=== PATIENT | male | born 1975 | race Hispanic/Latino ===

== ENCOUNTER 2018-07-15 09:50 | Emergency (ER) | payer OTHER ==
--- OUTSIDE RECORDS SUMMARY | 2018-07-15 09:52 | XMS REPORT ---
:1975 [facility] Address [address] [place] [address] Dr. H[address] [place] [id number] Care Team Providers Name Role Phone Unavailable Unavailable Unavailable Problems This patient has no known problems. Allergies, Adverse Reactions, Alerts This patient has no known allergies or adverse reactions. Medications This patient has no known medications.
--- NOTE | 2018-07-15 11:14 | EDPHYS ---
Physician Documentation [facility] Name: Prudencio Catherine III Age: 43 yrs Sex: Male : 1975 Arrival Date: 07/15/2018 Time: 09:52 Bed 12 Private MD: Hernandez Stringer ED Physician Wendy Holly HPI: 07/15 10:53 This 43 yrs old Male presents to ER via Ambulatory with complaints of Flu ma2 Symptoms. 10:53 Onset: The symptoms/episode began/occurred gradually, 3 day(s) ago. Severity of ma2 symptoms: At their worst the symptoms were moderate, in the emergency department the symptoms are unchanged. Associated signs and symptoms: Pertinent negatives: diarrhea, fever, rhinorrhea, sore throat. The patient has not experienced similar symptoms in the past. Historical: - Allergies: 10:17 Advil; hb 10:17 Excedrin PM; hb - PSHx: 10:17 None; hb - Immunization history:: Adult Immunizations unknown. - Social history:: Smoking status: Patient/guardian denies using alcohol, street drugs, The patient lives with family. - Family history:: not pertinent. - Ebola Screening: : Patient negative for fever greater than or equal to 101.5 degrees Fahrenheit, and additional compatible Ebola Virus Disease symptoms Patient denies exposure to infectious person Patient denies travel to an Ebola-affected area in the 21 days before illness onset No symptoms or risks identified at this time. ROS: 10:53 Constitutional: Negative for fever, chills, and weight loss, Cardiovascular: Negative ma2 for chest pain, palpitations, and edema. 10:53 ENT: Positive for nasal discharge, sinus pain, Negative for injury or acute deformity. 10:53 All other systems are negative. Exam: 10:53 Constitutional: This is a well developed, well nourished patient who is awake, alert, ma2 and in no acute distress. Chest/axilla: Normal chest wall appearance and motion. Nontender with no deformity. No lesions are appreciated. Cardiovascular: Regular rate and rhythm with a normal S1 and S2. No gallops, murmurs, or rubs. Normal PMI, no JVD. No pulse deficits. Respiratory: Lungs have equal breath sounds bilaterally, clear to auscultation and percussion. No rales, rhonchi or wheezes noted. No increased work of breathing, no retractions or nasal flaring. Abdomen/GI: Soft, non-tender, with normal bowel sounds. No distension or tympany. No guarding or rebound. No evidence of tenderness throughout. MS/ Extremity: Pulses equal, no cyanosis. Neurovascular intact. Full, normal range of motion. Neuro: Awake and alert, GCS 15, oriented to person, place, time, and situation. Cranial nerves II-XII grossly intact. Motor strength 5/5 in all extremities. Sensory grossly intact. Cerebellar exam normal. Normal gait. 10:53 ENT: TM's: are normal, Nose: is normal, Posterior pharynx: Airway: normal, Tonsils: bilaterally enlarged, with erythema, no exudate, no ulcerations, swelling, is not appreciated, peritonsillar mass, is not appreciated, pooling of secretions, is not appreciated. Vital Signs: 10:17 BP 137 / 82; Pulse 84; Resp 18; Temp 98.4; Pulse Ox 100% on R/A; Pain 7/10; hb MDM: 10:19 Patient medically screened. ma2 10:53 Differential Diagnosis: Bronchitis Influenza Upper Respiratory Infection Sinusitis ma2 Pharyngitis. Data reviewed: vital signs, nurses notes. Counseling: I had a detailed discussion with the patient and/or guardian regarding: the historical points, exam findings, and any diagnostic results supporting the discharge/admit diagnosis, the presence of at least one elevated blood pressure reading (>120/80) during this emergency department visit, the need for outpatient follow up. 07/15 10:20 Order name: Influenza Screen (a \T\ B); Complete Time: 11:12 [facility] 07/15 10:20 Order name: Strep; Complete Time: 11:12 [facility] 07/15 11:13 Order name: Throat Culture EDMS Administered Medications: No medications were administered Disposition: 07/15/18 11:13 Discharged to Home. Impression: Acute bronchitis. - Condition is Stable. - Discharge Instructions: Acute Bronchitis, Adult. - Prescriptions for Prednisone 20 mg Oral Tablet - take 1 tablet by ORAL route once daily for 5 days; 5 tablet. Tessalon Perles 100 mg Oral Capsule - take 1 capsule by ORAL route every 8 hours As needed; 15 capsule. Zithromax Z- Irvin 250 mg Oral Tablet - take 1 tablet by ORAL route as directed for 5 days Day 1 - take two (2) tablets one time. Day 2, 3, 4 , 5 take one (1) tablet once daily.; 6 tablet. Albuterol Sulfate 90 mcg/actuation - inhale 1-2 puff by INHALATION route every 4-6 hours; 1 Inhaler. - Medication Reconciliation Form, Thank You Letter, Antibiotic Education, Prescription Opioid Use form. - Follow up: Private Physician; When: Tomorrow; Reason: Continuance of care. Signatures: Dispatcher [employer] Mary Lee RN RN Hansa Islas RN RN Wendy Araujo MD MD ma2 Corrections: (The following items were deleted from the chart) 11:31 11:13 07/15/2018 11:13 Discharged to Home. Impression: Acute bronchitis. Condition is iw Stable. Forms are Medication Reconciliation Form, Thank You Letter, Antibiotic Education, Prescription Opioid Use. Follow up: Private Physician; When: Tomorrow; Reason: Continuance of care. ma2
--- NOTE | 2018-07-15 11:14 | ER ---
Nurse's Notes [facility] Name: Prudencio Catherine III Age: 43 yrs Sex: Male : 1975 Arrival Date: 07/15/2018 Time: 09:52 Bed 12 Private MD: Hernandez Stringer Diagnosis: Acute bronchitis Presentation: 07/15 10:14 Presenting complaint: Productive cough, headache, sore throat, body aches, and night hb sweats x 4 days. Transition of care: patient was not received from another setting of care. Onset of symptoms was July 11, 2018. Risk Assessment: Do you want to hurt yourself or someone else? Patient reports no desire to harm self or others. Care prior to arrival: None. 10:14 Method Of Arrival: Ambulatory hb 10:14 Acuity: ANDRES 4 hb 10:46 Initial Sepsis Screen: Does the patient meet any 2 criteria? No. Patient's initial iw sepsis screen is negative. Does the patient have a suspected source of infection? No. Patient's initial sepsis screen is negative. Historical: - Allergies: 10:17 Advil; hb 10:17 Excedrin PM; hb - PSHx: 10:17 None; hb - Immunization history:: Adult Immunizations unknown. - Social history:: Smoking status: Patient/guardian denies using alcohol, street drugs, The patient lives with family. - Family history:: not pertinent. - Ebola Screening: : Patient negative for fever greater than or equal to 101.5 degrees Fahrenheit, and additional compatible Ebola Virus Disease symptoms Patient denies exposure to infectious person Patient denies travel to an Ebola-affected area in the 21 days before illness onset No symptoms or risks identified at this time. Screenin:47 Abuse screen: Denies threats or abuse. Denies injuries from another. Nutritional iw screening: No deficits noted. Tuberculosis screening: No symptoms or risk factors identified. Fall Risk None identified. Assessment: 10:46 General: Appears in no apparent distress. Behavior is calm, cooperative. Pain: iw Complains of pain in head, sore throat. Neuro: Level of Consciousness is awake, alert, obeys commands, Oriented to person, place, time, situation, Moves all extremities. Full function. Cardiovascular: Patient's skin is warm and dry. Respiratory: Respiratory effort is even, unlabored, Respiratory pattern is regular. Derm: Skin is intact, is healthy with good turgor. Musculoskeletal: Range of motion: intact in all extremities. Vital Signs: 10:17 BP 137 / 82; Pulse 84; Resp 18; Temp 98.4; Pulse Ox 100% on R/A; Pain 7/10; hb ED Course: 09:52 Patient arrived in ED. ag5 09:52 Hernandez Stringer MD is Private Physician. ag5 10:15 Triage completed. hb 10:15 Arm band placed on. hb 10:19 Wendy Holly MD is Attending Physician. ma2 10:45 Mary Pederson, RN is Primary Nurse. iw 10:46 Patient has correct armband on for positive identification. iw 10:47 No provider procedures requiring assistance completed. Flu and/or RSV swab sent to lab. iw Strep swab sent to lab. Patient did not have IV access during this emergency room visit. Administered Medications: No medications were administered Outcome: 11:13 Discharge ordered by . ma 11:30 Discharged to home ambulatory. iw 11:30 Condition: good 11:30 Discharge instructions given to patient, Instructed on discharge instructions, follow up and referral plans. medication usage, Demonstrated understanding of instructions, follow-up care, medications, Prescriptions given X 2. 11:31 Patient left the ED. iw Signatures: Mary Pederson, VICKY PERRY Hansa Islas RN RN Wendy Holly MD MD coAllison Beatty ag5
== END 2018-07-15 11:31 | disposition home or self-care (01) ==
LOC: ER 09:50
DX: J20.9 Acute bronchitis, unspecified (principal); Z88.6 Allergy status to analgesic agent
CPT/HCPCS: 87070; 87081; 87804; 99283

== ENCOUNTER 2019-09-07 08:01 | Emergency (ER) | payer OTHER ==
--- OUTSIDE RECORDS SUMMARY | 2019-09-07 08:03 | XMS REPORT ---
:1975 Author Organization [facility] t Address [address] [place] [address] Dr. Hyman [address] [place] [id number] Care Team Providers Name Role Phone Unavailable Unavailable Unavailable Problems This patient has no known problems. Allergies, Adverse Reactions, Alerts This patient has no known allergies or adverse reactions. Medications This patient has no known medications.
[2019-09-07] MEDS ORDERED: NA CHLORIDE 0.9% 1,000 ML ONE (08:24)
[2019-09-07] MEDS ORDERED: MORPHINE 4 MG/ML SYR ONE (08:24)
[2019-09-07] MEDS ORDERED: ONDANSETRON 4 MG/2 ML VIAL ONE (08:24)
[2019-09-07 08:31] LABS: Absolute Lymphocytes (CBC) 3.3 K/uL (0.7-4.9); Basophils % 0.9 % (0-1.3); Hematocrit 43.6 % (39.6-49.0); Lymphocytes % 40.5 % (15.3-44.8); MPV 9.2 fL (7.6-11.3); RBC Red Blood Cell Count 5.25 M/uL (4.33-5.43)
[2019-09-07 08:49] LABS: Albumin 3.8 g/dL (3.4-5.0); Bilirubin Direct 0.1 mg/dL (0-0.2); Bilirubin Total 0.3 mg/dL (0.2-1.0); Potassium 3.7 mmol/L (3.5-5.1)
[2019-09-07] MEDS ORDERED: KETOROLAC 30 MG/ML INJ ONE (09:22)
--- NOTE | 2019-09-07 09:39 | RAD REPORT ---
EXAM DESCRIPTION: CT - Stone Protocol - 09/07/2019 8:58 am CLINICAL HISTORY: Flank pain. FLANK PAIN COMPARISON: CTSTONE PROTOCOL dated 09/15/2014 TECHNIQUE: Axial images were obtained without oral or IV contrast. Lack of contrast limits solid org an and vascular assessment. The [id number] spans the entirety of the system partially obscuring uppermost abdomen and lung bases. Coronal reformatted images were obtained and reviewed. All CT scans are performed using dose optimization technique as appropriate and may include automated exposure control or mA/KV adjustment according to patient size. FINDINGS: The lower lung walter are clear. Imaged portions of the liver and spleen show no suspicious findings on non-contrast imaging. The panc reas and adrenal glands are normal. No pathologic lymphadenopathy in the abdomen or pelvis. 2 mm calculus is seen at the right UVJ resulting in mild right hydronephrosis and hydroureter. Additi onal punctate caliceal stones are present bilaterally. No bowel obstruction, free air, free fluid or abscess. Normal appendix noted. No significant bony abnormality. IMPRESSION: 2 mm calculus right UVJ resulting in mild right hydronephrosis and hydroureter. Additional punctate bilateral caliceal nephrolithiasis.
[2019-09-07] MEDS ORDERED: TAMSULOSIN 0.4 MG SR CAP ONE (10:17)
[2019-09-07 10:18] LABS: Urine Bacteria <20 /HPF (NONE SEEN); Urine Culture Reflex Order NOT NEEDED; Urine Mucus LIGHT /HPF (NONE SEEN); Urine RBC NONE SEEN /HPF (NONE SEEN)
[2019-09-07 10:22] LABS: Urine Blood NEGATIVE (NEG); Urine Glucose 1+ (NEG); Urine Protein TRACE (NEG); Urine Specific Gravity >1.030 (1.005-1.030); Urine pH 5.5 (5.0-7.0)
--- NOTE | 2019-09-07 10:35 | ER ---
Nurse's Notes [facility] Name: Prudencio Catherine III Age: 44 yrs Sex: Male : 1975 Arrival Date: 09/07/2019 Time: 08:03 Bed 7 Private MD: Hernandez Stringer Diagnosis: Ureterolithiasis Presentation: 09/06 08:12 Chief complaint: Sudden severe right flank pain and nausea x 1 hr. Hx of kidney stones. hb Coronavirus screen: Proceed with normal triage. Ebola Screen: No symptoms or risks identified at this time. Initial Sepsis Screen: Does the patient meet any 2 criteria? No. Patient's initial sepsis screen is negative. Does the patient have a suspected source of infection? No. Patient's initial sepsis screen is negative. Risk Assessment: Do you want to hurt yourself or someone else? Patient reports no desire to harm self or others. Onset of symptoms was September 07, 2019. 08:12 Method Of Arrival: Ambulatory hb 08:12 Acuity: ANDRES 3 hb Historical: - Allergies: 08:14 Advil; hb 08:14 Excedrin PM; hb - Home Meds: 08:14 None [Active]; hb - PMHx: 08:14 Kidney stones; hb - PSHx: 08:14 None; hb - Immunization history:: Adult Immunizations up to date. - Social history:: Smoking status: Patient denies any tobacco usage or history of. Screenin:20 Abuse screen: Denies threats or abuse. Nutritional screening: No deficits noted. em Tuberculosis screening: No symptoms or risk factors identified. Fall Risk None identified. Assessment: 08:20 General: Appears uncomfortable, Behavior is calm, cooperative, appropriate for age, em Reports cold sweats Denies fever. Pain: Complains of pain in anterior aspect of right lateral abdomen Pain currently is 10 out of 10 on a pain scale. Quality of pain is described as sharp, shooting, Pain began 1 hour ago. Neuro: Level of Consciousness is awake, alert, obeys commands, Oriented to person, place, time, situation, Appropriate for age. Cardiovascular: Capillary refill < 3 seconds Patient's skin is warm and dry. Respiratory: Airway is patent Respiratory effort is even, unlabored, Respiratory pattern is regular, symmetrical. GI: Abdomen is round non-distended, Patient currently denies nausea, vomiting. Derm: Skin is intact, is healthy with good turgor, Skin is pink, warm \T\ dry. Musculoskeletal: Capillary refill < 3 seconds, Range of motion: intact in all extremities. Vital Signs: 08:12 BP 139 / 90; Pulse 63; Resp 16; Temp 97.8; Pulse Ox 99% on R/A; Weight 124.74 kg; hb Height 5 ft. 5 in. (165.10 cm); Pain 10/10; 09:22 BP 127 / 66; Pulse 61; Resp 18; Pulse Ox 99% on R/A; Pain 7/10; em 10:12 BP 122 / 64; Pulse 72; Resp 16; Pulse Ox 100% ; jl7 08:12 Body Mass Index 45.76 (124.74 kg, 165.10 cm) hb ED Course: 08:03 Patient arrived in ED. am2 08:03 Hernandez Stringer MD is Private Physician. am2 08:03 Julius Graham [facility]. pm1 08:03 Jesse Johnson MD is Attending Physician. pm1 08:14 Triage completed. hb 08:14 Arm band placed on. hb 08:15 Alfonso Barnett, RN is Primary Nurse. em 08:20 Patient has correct armband on for positive identification. Bed in low position. Call em light in reach. Pulse ox on. NIBP on. 08:56 Initial lab(s) drawn, by me, sent to lab. Inserted saline lock: 20 gauge in right mh5 antecubital area, using aseptic technique. Blood collected. 08:58 CT Stone Protocol In Process Unspecified. EDMS 08:59 CT completed. Patient tolerated procedure well. Patient moved back from CT. bq 10:35 Ann-Marie Hoover MD is Referral Physician. pm1 10:54 No provider procedures requiring assistance completed. IV discontinued, intact, jl7 bleeding controlled, No redness/swelling at site. Pressure dressing applied. Administered Medications: 08:22 Drug: NS 0.9% 1000 ml Route: IV; Rate: 1000 ml; Site: right antecubital; em 09:21 Follow up: IV Status: Completed infusion; IV Intake: 1000ml em 08:22 Drug: Zofran (Ondansetron) 4 mg Route: IVP; Site: right antecubital; em 08:40 Follow up: Response: No adverse reaction em 08:40 Follow up: Response: No adverse reaction; Marked relief of symptoms; Pain is decreased; em RASS: Alert and Calm (0) 08:24 Drug: morphine 4 mg Route: IVP; Site: right antecubital; em 10:55 Follow up: Response: No adverse reaction jl7 09:20 Drug: TORadol - Ketorolac 15 mg Route: IVP; Site: right antecubital; em 09:50 Follow up: Response: No adverse reaction; Pain is decreased jl7 10:12 Drug: Flomax 0.4 mg Route: PO; jl7 10:55 Follow up: Response: No adverse reaction jl7 Intake: 09:21 IV: 1000ml; Total: 1000ml. em Outcome: 10:35 Discharge ordered by . pm1 10:54 Discharged to home ambulatory. jl7 10:54 Condition: stable 10:54 Discharge instructions given to patient, Instructed on discharge instructions, follow up and referral plans. medication usage, Demonstrated understanding of instructions, follow-up care, medications, Prescriptions given X 3. 10:56 Patient left the ED. jl7 Signatures: Dispatcher [employer] Waleska Huffman Edgar RN Julius Denton, ANTHONY [employer]OUNDER pm1 Hansa Islas RN RN hb Martinez, Maria [facility] Neil Ro RN RN jl7 Trini North 2
--- NOTE | 2019-09-07 10:35 | EDPHYS ---
Physician Documentation [facility] Name: Prudencio Catherine III Age: 44 yrs Sex: Male : 1975 Arrival Date: 09/07/2019 Time: 08:03 Bed 7 Private MD: Hernandez Stringer ED Physician Jesse Johnson HPI: 09/06 08:25 This 44 yrs old Male presents to ER via Ambulatory with complaints of Flank pm1 Pain. 08:25 The patient complains of pain in the right low back. Onset: The symptoms/episode pm1 began/occurred this morning. Modifying factors: The symptoms are alleviated by nothing. the symptoms are aggravated by nothing. Associated signs and symptoms: Pertinent positives: nausea, vomiting, Pertinent negatives: diarrhea, dysuria, fever. Severity of pain: in the emergency department the pain is actually worse. The patient has experienced similar episodes in the past, a few times, and the symptoms today are exactly the same, to previous kidney stones. The patient has not recently seen a physician. Historical: - Allergies: 08:14 Advil; hb 08:14 Excedrin PM; hb - Home Meds: 08:14 None [Active]; hb - PMHx: 08:14 Kidney stones; hb - PSHx: 08:14 None; hb - Immunization history:: Adult Immunizations up to date. - Social history:: Smoking status: Patient denies any tobacco usage or history of. ROS: 08:25 Constitutional: Negative for fever, chills, and weight loss, Cardiovascular: Negative pm1 for chest pain, palpitations, and edema, Respiratory: Negative for shortness of breath, cough, wheezing, and pleuritic chest pain. 08:25 : Negative for injury, bleeding, discharge, and swelling, MS/Extremity: Negative for injury and deformity, Skin: Negative for injury, rash, and discoloration, Neuro: Negative for headache, weakness, numbness, tingling, and seizure. 08:25 Abdomen/GI: Positive for nausea and vomiting, Negative for abdominal pain, diarrhea, constipation. 08:25 Back: Positive for flank pain, on the right, Negative for pain with movement. Exam: 08:25 Constitutional: This is a well developed, well nourished patient who is awake, alert, pm1 and in no acute distress. Head/Face: Normocephalic, atraumatic. Chest/axilla: Normal chest wall appearance and motion. Nontender with no deformity. No lesions are appreciated. 08:25 Back: No spinal tenderness. No costovertebral tenderness. Full range of motion. 08:25 Skin: Warm, dry with normal turgor. Normal color with no rashes, no lesions, and no evidence of cellulitis. MS/ Extremity: Pulses equal, no cyanosis. Neurovascular intact. Full, normal range of motion. 08:25 Cardiovascular: Exam negative for acute changes, Rate: normal, Rhythm: regular, Pulses: no pulse deficits are appreciated, Edema: is not appreciated. 08:25 Respiratory: Exam negative for acute changes, respiratory distress, shortness of breath. 08:25 Abdomen/GI: Inspection: obese Palpation: abdomen is soft and non-tender, in all quadrants, mass, is not appreciated, rebound tenderness, is not appreciated. 08:25 Neuro: Exam negative for acute changes, Orientation: is normal, Motor: is normal, moves all fours. Vital Signs: 08:12 BP 139 / 90; Pulse 63; Resp 16; Temp 97.8; Pulse Ox 99% on R/A; Weight 124.74 kg; hb Height 5 ft. 5 in. (165.10 cm); Pain 10/10; 09:22 BP 127 / 66; Pulse 61; Resp 18; Pulse Ox 99% on R/A; Pain 7/10; em 10:12 BP 122 / 64; Pulse 72; Resp 16; Pulse Ox 100% ; jl7 08:12 Body Mass Index 45.76 (124.74 kg, 165.10 cm) hb MDM: 08:06 Patient medically screened. pm1 08:46 Data reviewed: vital signs. Data interpreted: Pulse oximetry: on room air is 99 %. pm1 Interpretation: normal. 10:34 Counseling: I had a detailed discussion with the patient and/or guardian regarding: the pm1 historical points, exam findings, and any diagnostic results supporting the discharge/admit diagnosis, lab results, radiology results, the need for outpatient follow up, a urologist, to return to the emergency department if symptoms worsen or persist or if there are any questions or concerns that arise at home. 09/06 08:10 Order name: Basic Metabolic Panel; Complete Time: 08:51 pm1 09/06 08:10 Order name: CBC with Diff; Complete Time: 08:46 pm1 09/06 08:10 Order name: Creatinine for Radiology; Complete Time: 08:51 pm1 09/06 08:10 Order name: Hepatic Function; Complete Time: 08:51 pm1 09/06 08:10 Order name: Lipase; Complete Time: 08:51 pm1 09/06 08:10 Order name: Urine Microscopic Only; Complete Time: 10:34 pm1 09/06 08:10 Order name: IV Saline Lock; Complete Time: 08:32 pm1 09/06 08:10 Order name: CT Stone Protocol; Complete Time: 09:42 pm1 09/06 09:58 Order name: Urine Dipstick--Ancillary (enter results); Complete Time: 10:34 tt3 09/06 08:10 Order name: Labs collected and sent; Complete Time: 08:32 pm1 09/06 08:10 Order name: Urine Dipstick-Ancillary (obtain specimen); Complete Time: 10:48 pm1 Administered Medications: 08:22 Drug: NS 0.9% 1000 ml Route: IV; Rate: 1000 ml; Site: right antecubital; em 09:21 Follow up: IV Status: Completed infusion; IV Intake: 1000ml em 08:22 Drug: Zofran (Ondansetron) 4 mg Route: IVP; Site: right antecubital; em 08:40 Follow up: Response: No adverse reaction em 08:40 Follow up: Response: No adverse reaction; Marked relief of symptoms; Pain is decreased; em RASS: Alert and Calm (0) 08:24 Drug: morphine 4 mg Route: IVP; Site: right antecubital; em 10:55 Follow up: Response: No adverse reaction jl7 09:20 Drug: TORadol - Ketorolac 15 mg Route: IVP; Site: right antecubital; em 09:50 Follow up: Response: No adverse reaction; Pain is decreased jl7 10:12 Drug: Flomax 0.4 mg Route: PO; jl7 10:55 Follow up: Response: No adverse reaction jl7 Disposition: 09/07/19 10:35 Discharged to Home. Impression: Ureterolithiasis. - Condition is Stable. - Discharge Instructions: Kidney Stones. - Prescriptions for Flomax 0.4 mg Oral Capsule, Sust. Release 24 hr - take 1 capsule by ORAL route once daily 1/2 hour following the same meal each day; 10 capsule. Tylenol- Codeine #3 300-30 mg Oral Tablet - take 2 tablets by ORAL route every 6 hours As needed; 20 tablet. Zofran ODT 4 mg Oral tablet,disintegrating - place 1 tablet by TRANSLINGUAL route every 8 hours As needed; 12 tablet. - Medication Reconciliation Form, Thank You Letter, Antibiotic Education, Prescription Opioid Use form. - Follow up: Emergency Department; When: As needed; Reason: Worsening of condition. Follow up: Ann-Marie Hoover; When: 2 - 3 days; Reason: Recheck today's complaints, Continuance of care, Re-evaluation by your physician. - Problem is new. - Symptoms have improved. Addendum: 09/08/2019 20:19 Co-signature as Attending Physician, Jesse Johnson MD I agree with the assessment and c pathak plan of care. Signatures: Dispatcher [employer] Jesse Valderrama MD MD cha Munoz, Edgar, RN RN Julius Beckford, ANTHONY BRAZER FURNACE pm1 Hansa Islas, RN RN Neil Ro RN RN jl7 Corrections: (The following items were deleted from the chart) 09/06 10:56 10:35 09/07/2019 10:35 Discharged to Home. Impression: Ureterolithiasis. Condition is jl7 Stable. Discharge Instructions: Kidney Stones. Prescriptions for Flomax 0.4 mg Oral Capsule, Sust. Release 24 hr - take 1 capsule by ORAL route once daily 1/2 hour following the same meal each day; 10 capsule. and Forms are Medication Reconciliation Form, Thank You Letter, Antibiotic Education, Prescription Opioid Use. Follow up: Emergency Department; When: As needed; Reason: Worsening of condition. Follow up: Ann-Marie Hoover; When: 2 - 3 days; Reason: Recheck today's complaints, Continuance of care, Re-evaluation by your physician. Problem is new. Symptoms have improved. pm1
[2019-09-07 11:06] VITALS: TEMP 97.8
[2019-09-07 11:07] VITALS: BP 122/64; O2SAT 100
== END 2019-09-07 10:56 | disposition home or self-care (01) ==
LOC: ER 08:01
DX: N20.1 Calculus of ureter (principal)
CPT/HCPCS: 96361; 85025; 80048; 36415; 80076; 83690; 76377; 74176; 96375; 96374; 99284; J7030; J2405; 81003; 81015

== ENCOUNTER 2020-02-24 22:58 | Emergency (ER) | payer OTHER ==
--- OUTSIDE RECORDS SUMMARY | 2020-02-24 23:00 | XMS REPORT | Continuity of Care Document ---
:1975 Author Organization [facility] t Address [address] [place] [address] Dr. Hyman [address] [place] [id number] Care Team Providers Name Role Phone Unavailable Unavailable Unavailable Problems This patient has no known problems. Allergies, Adverse Reactions, Alerts This patient has no known allergies or adverse reactions. Medications This patient has no known medications. Procedures This patient has no known procedures. Results This patient has no known results.
[2020-02-24] MEDS ORDERED: NA CHLORIDE 0.9% 1,000 ML ONE (23:27)
[2020-02-24] MEDS ORDERED: MORPHINE 4 MG/ML SYR ONE (23:27)
[2020-02-24] MEDS ORDERED: ONDANSETRON 4 MG/2 ML VIAL ONE (23:27)
[2020-02-24 23:58] LABS: Absolute Lymphocytes (CBC) 4.5 K/uL (0.7-4.9); Basophils % 0.9 % (0-1.3); Hematocrit 42.2 % (39.6-49.0); Lymphocytes % 47.1 % (15.3-44.8); MPV 9.7 fL (7.6-11.3); RBC Red Blood Cell Count 5.06 M/uL (4.33-5.43)
[2020-02-25 00:10] LABS: ALT/SGPT 57 U/L (12-78); AST/SGOT 39 U/L (15-37); Albumin 3.6 g/dL (3.4-5.0); Alkaline Phosphatase 70 U/L (45-117); BUN Blood Urea Nitrogen 15 mg/dL (7-18); Bicarbonate 27 mmol/L (21-32); Bilirubin Direct < 0.1 mg/dL (0-0.2); Bilirubin Total 0.2 mg/dL (0.2-1.0); Glucose Level 305 mg/dL (74-106); Lipase 327 U/L (73-393); Potassium 3.6 mmol/L (3.5-5.1); Protein, Total 7.8 g/dL (6.4-8.2); Sodium Level 136 mmol/L (136-145)
[2020-02-25] MEDS ORDERED: MORPHINE 4 MG/ML SYR ONE (00:30)
[2020-02-25] MEDS ORDERED: ONDANSETRON 4 MG/2 ML VIAL ONE (00:30)
[2020-02-25 00:35] LABS: Urine Bacteria <20 /HPF (NONE SEEN); Urine Culture Reflex Order NOT NEEDED; Urine RBC <5 /HPF (NONE SEEN)
--- NOTE | 2020-02-25 00:35 | ER ---
Nurse's Notes [facility] Name: Prudencio Catherine III Age: 44 yrs Sex: Male : 1975 Arrival Date: 02/24/2020 Time: 23:01 Bed 20 Private MD: Diagnosis: Calculus of kidney with calculus of ureter-Left Presentation: 02/23 23:12 Chief complaint: Patient states: i have left flank pain that started 15 min ago. mg2 Coronavirus screen: Client denies travel out of the [place] in the last 14 days. At this time, the client does not indicate any symptoms associated with coronavirus-19. Ebola Screen: No symptoms or risks identified at this time. Initial Sepsis Screen: Does the patient meet any 2 criteria? No. Patient's initial sepsis screen is negative. Does the patient have a suspected source of infection? No. Patient's initial sepsis screen is negative. Risk Assessment: Do you want to hurt yourself or someone else? Patient reports no desire to harm self or others. Onset of symptoms was February 24, 2020. 23:12 Method Of Arrival: Ambulatory mg2 23:12 Acuity: ANDRES 2 mg2 Triage Assessment: 02/24 00:25 General: Behavior is calm, cooperative. mg2 Historical: - Allergies: 02/23 23:51 Advil; mg2 23:51 Excedrin PM; mg2 - Home Meds: 23:51 metformin [Active]; mg2 - PMHx: 23:51 Kidney stones; Diabetes - NIDDM; mg2 - PSHx: 23:51 None; mg2 - Immunization history:: Flu vaccine status is unknown. - Social history:: Smoking status: Patient denies any tobacco usage or history of. Patient/guardian denies using alcohol, street drugs, IV drugs. Screenin/28 00:20 Abuse screen: Denies threats or abuse. Denies injuries from another. Nutritional mg2 screening: No deficits noted. Tuberculosis screening: No symptoms or risk factors identified. Fall Risk IV access (20 points). Assessment: 02/23 23:15 General: Appears in no apparent distress. uncomfortable. Pain: Complains of pain in mg2 left flank Pain currently is 10 out of 10 on a pain scale. Neuro: Level of Consciousness is awake, alert, obeys commands, Oriented to person, place, time, situation. Cardiovascular: Capillary refill < 3 seconds Patient's skin is warm and dry. Respiratory: Airway is patent Respiratory effort is even, unlabored, Respiratory pattern is regular, symmetrical. GI: Reports nausea. : Reports pain in left flank(s). EENT: No signs and/or symptoms were reported regarding the EENT system. Derm: Skin is intact, is healthy with good turgor, Skin is pink, warm \T\ dry. normal. Musculoskeletal: Circulation, motion, and sensation intact. Capillary refill < 3 seconds. 02/24 00:35 Reassessment: Patient appears in no apparent distress at this time. Patient and/or mg2 family updated on plan of care and expected duration. Pain level reassessed. Patient is alert, oriented x 3, equal unlabored respirations, skin warm/dry/pink. 00:49 Reassessment: Patient appears in no apparent distress at this time. patient will be dc mg2 after completing the iv fluid. Patient states feeling better. Vital Signs: 02/23 23:12 Weight 99.79 kg; Height 5 ft. 5 in. (165.10 cm); Pain 10/10; mg2 23:12 BP 144 / 90; Pulse 63; Resp 18; Temp 98.6(O); Pulse Ox 100% on R/A; Pain 10/10; mg2 02/24 00:49 BP 142 / 85; Pulse 65; Resp 18; Temp 98; Pulse Ox 100% on R/A; Pain 2/10; mg2 02/23 23:12 Body Mass Index 36.61 (99.79 kg, 165.10 cm) mg2 ED Course: 02/23 23:01 Patient arrived in ED. ag3 23:10 Julius Graham NP is PHCP. pm1 23:10 Rene Vargas MD is Attending Physician. pm1 23:13 Inserted saline lock: 20 gauge in right antecubital area, using aseptic technique. mg2 Blood collected. 23:42 David Abdi, VICKY is Primary Nurse. mg2 23:50 Triage completed. mg2 23:51 No provider procedures requiring assistance completed. mg2 02/24 00:00 CT Stone Protocol In Process Unspecified. EDMS 00:19 Patient has correct armband on for positive identification. Pulse ox on. NIBP on. mg2 00:21 Arm band placed on. mg2 01:07 IV discontinued, intact, bleeding controlled, No redness/swelling at site. Pressure mg2 dressing applied. Administered Medications: 02/23 23:14 Drug: NS 0.9% 1000 ml Route: IV; Rate: 1000 ml; Site: right antecubital; mg2 02/24 01:08 Follow up: Response: No adverse reaction; IV Status: Completed infusion; IV Intake: mg2 1000ml 02/23 23:14 Drug: morphine 4 mg Route: IVP; Site: right antecubital; mg2 02/24 00:30 Follow up: Response: No adverse reaction mg2 02/23 23:48 Drug: Zofran (Ondansetron) 4 mg Route: IVP; Site: right antecubital; mg2 02/24 00:29 Follow up: Response: No adverse reaction mg2 00:29 Drug: morphine 4 mg Route: IVP; Site: right antecubital; mg2 01:08 Follow up: Response: No adverse reaction; Marked relief of symptoms; RASS: Alert and mg2 Calm (0) 00:29 Drug: Zofran (Ondansetron) 4 mg Route: IVP; Site: right antecubital; mg2 01:07 Follow up: Response: No adverse reaction; Marked relief of symptoms; Nausea is decreasedmg2 00:40 Drug: Flomax 0.4 mg Route: PO; mg2 01:07 Follow up: Response: No adverse reaction mg2 00:40 Drug: TORadol - Ketorolac 15 mg Route: IVP; Site: right antecubital; mg2 01:07 Follow up: Response: No adverse reaction; Marked relief of symptoms mg2 Intake: 01:08 IV: 1000ml; Total: 1000ml. mg2 Outcome: 00:34 Discharge ordered by . pm1 01:08 Discharged to home ambulatory. mg2 01:08 Condition: stable 01:08 Discharge instructions given to patient, Instructed on discharge instructions, follow up and referral plans. medication usage, Demonstrated understanding of instructions, follow-up care, medications, Prescriptions given X 3. 01:08 Patient left the ED. mg2 Signatures: Dispatcher [employer] EDMS Julius Graham NP ASSOCIATE PROFESSOR OF CHEMISTRY pm1 David Abdi, VICKY RN mg2 Dafne Chen ag3
--- NOTE | 2020-02-25 00:35 | EDPHYS ---
Physician Documentation [facility] Name: Prudencio Catherine III Age: 44 yrs Sex: Male : 1975 Arrival Date: 02/24/2020 Time: 23:01 Bed 20 Private MD: ED Physician Rene Vargas HPI: 02/23 23:19 This 44 yrs old Male presents to ER via Ambulatory with complaints of Flank pm1 Pain. 23:19 The patient complains of pain in the left low back. The pain does not radiate. Onset: pm1 The symptoms/episode began/occurred just prior to arrival. Modifying factors: The symptoms are alleviated by nothing. the symptoms are aggravated by nothing. Associated signs and symptoms: Pertinent positives: nausea, Pertinent negatives: dysuria, fever, vomiting. Severity of pain: in the emergency department the pain is actually worse. The patient has experienced similar episodes in the past, several times, and the symptoms today are exactly the same, to previous kidney stones. The patient has not recently seen a physician. Historical: - Allergies: 23:51 Advil; mg2 23:51 Excedrin PM; mg2 - Home Meds: 23:51 metformin [Active]; mg2 - PMHx: 23:51 Kidney stones; Diabetes - NIDDM; mg2 - PSHx: 23:51 None; mg2 - Immunization history:: Flu vaccine status is unknown. - Social history:: Smoking status: Patient denies any tobacco usage or history of. Patient/guardian denies using alcohol, street drugs, IV drugs. ROS: 23:19 Constitutional: Negative for fever, chills, and weight loss. pm1 23:19 Cardiovascular: Negative for chest pain, palpitations, and edema, Respiratory: Negative for shortness of breath, cough, wheezing, and pleuritic chest pain. 23:19 : Negative for injury, bleeding, discharge, and swelling, MS/Extremity: Negative for injury and deformity, Skin: Negative for injury, rash, and discoloration, Neuro: Negative for headache, weakness, numbness, tingling, and seizure. 23:19 Abdomen/GI: Positive for nausea, Negative for abdominal pain, vomiting, diarrhea. 23:19 Back: Positive for flank pain, on the left. Exam: 23:19 Constitutional: This is a well developed, well nourished patient who is awake, alert, pm1 and in no acute distress. Head/Face: Normocephalic, atraumatic. 23:19 Skin: Warm, dry with normal turgor. Normal color with no rashes, no lesions, and no evidence of cellulitis. MS/ Extremity: Pulses equal, no cyanosis. Neurovascular intact. Full, normal range of motion. 23:19 Cardiovascular: Exam negative for acute changes, Rate: normal, Rhythm: regular, Pulses: no pulse deficits are appreciated. 23:19 Respiratory: Exam negative for acute changes, respiratory distress, shortness of breath. 23:19 Abdomen/GI: Exam negative for acute changes, Inspection: abdomen appears normal, Palpation: abdomen is soft and non-tender, in all quadrants. 23:19 Back: CVA tenderness, that is mild, is noted on the left. 23:19 Neuro: Exam negative for acute changes, Orientation: is normal, Mentation: is normal, Motor: is normal, moves all fours. Vital Signs: 23:12 Weight 99.79 kg; Height 5 ft. 5 in. (165.10 cm); Pain 10/10; mg2 23:12 BP 144 / 90; Pulse 63; Resp 18; Temp 98.6(O); Pulse Ox 100% on R/A; Pain 10/10; mg2 02/24 00:49 BP 142 / 85; Pulse 65; Resp 18; Temp 98; Pulse Ox 100% on R/A; Pain 2/10; mg2 02/23 23:12 Body Mass Index 36.61 (99.79 kg, 165.10 cm) mg2 MDM: 02/23 23:11 Patient medically screened. pm1 02/24 00:29 Data reviewed: vital signs. Data interpreted: Pulse oximetry: on room air is 100 %. pm1 Interpretation: normal. Counseling: I had a detailed discussion with the patient and/or guardian regarding: the historical points, exam findings, and any diagnostic results supporting the discharge/admit diagnosis, lab results, radiology results, the need for outpatient follow up, a urologist, to return to the emergency department if symptoms worsen or persist or if there are any questions or concerns that arise at home. 02/23 23:13 Order name: Basic Metabolic Panel pm1 02/23 23:13 Order name: CBC with Diff; Complete Time: 00:20 pm1 02/23 23:13 Order name: Hepatic Function pm1 02/23 23:13 Order name: Lipase pm1 02/23 23:13 Order name: Urine Microscopic Only; Complete Time: 00:37 pm1 02/23 23:14 Order name: Basic Metabolic Panel; Complete Time: 00:20 EDMS 02/23 23:13 Order name: CT Stone Protocol pm1 02/23 23:14 Order name: Liver (Hepatic) Function; Complete Time: 00:20 EDMS 02/23 23:14 Order name: Lipase; Complete Time: 00:20 EDMS 02/24 00:31 Order name: Urine Dipstick--Ancillary (enter results); Complete Time: 00:37 ar5 02/23 23:13 Order name: IV Saline Lock; Complete Time: 23:49 pm1 02/23 23:13 Order name: Labs collected and sent; Complete Time: 23:49 pm1 02/23 23:13 Order name: Urine Dipstick-Ancillary (obtain specimen); Complete Time: 00:10 pm1 Administered Medications: 02/23 23:14 Drug: NS 0.9% 1000 ml Route: IV; Rate: 1000 ml; Site: right antecubital; mg2 02/24 01:08 Follow up: Response: No adverse reaction; IV Status: Completed infusion; IV Intake: mg2 1000ml 02/23 23:14 Drug: morphine 4 mg Route: IVP; Site: right antecubital; mg2 02/24 00:30 Follow up: Response: No adverse reaction mg2 02/23 23:48 Drug: Zofran (Ondansetron) 4 mg Route: IVP; Site: right antecubital; mg2 02/24 00:29 Follow up: Response: No adverse reaction mg2 00:29 Drug: morphine 4 mg Route: IVP; Site: right antecubital; mg2 01:08 Follow up: Response: No adverse reaction; Marked relief of symptoms; RASS: Alert and mg2 Calm (0) 00:29 Drug: Zofran (Ondansetron) 4 mg Route: IVP; Site: right antecubital; mg2 01:07 Follow up: Response: No adverse reaction; Marked relief of symptoms; Nausea is decreasedmg2 00:40 Drug: Flomax 0.4 mg Route: PO; mg2 01:07 Follow up: Response: No adverse reaction mg2 00:40 Drug: TORadol - Ketorolac 15 mg Route: IVP; Site: right antecubital; mg2 01:07 Follow up: Response: No adverse reaction; Marked relief of symptoms mg2 Disposition: 01:20 Co-signature as Attending Physician, Rene Vargas MD. shawn Disposition: 02/25/20 00:34 Discharged to Home. Impression: Calculus of kidney with calculus of ureter - Left. - Condition is Stable. - Discharge Instructions: Kidney Stones, Dietary Guidelines to Help Prevent Kidney Stones. - Prescriptions for Flomax 0.4 mg Oral Capsule, Sust. Release 24 hr - take 1 capsule by ORAL route once daily 1/2 hour following the same meal each day; 10 capsule. Zofran ODT 4 mg Oral tablet,disintegrating - place 1 tablet by TRANSLINGUAL route every 8 hours As needed; 20 tablet. Tylenol- Codeine #3 300-30 mg Oral Tablet - take 2 tablets by ORAL route every 6 hours As needed; 20 tablet. - Medication Reconciliation Form, Thank You Letter, Antibiotic Education, Prescription Opioid Use form. - Follow up: Emergency Department; When: As needed; Reason: Worsening of condition. Follow up: Private Physician; When: 2 - 3 days; Reason: Recheck today's complaints, Continuance of care, Re-evaluation by your physician. - Problem is new. - Symptoms have improved. Signatures: Dispatcher [employer] EDRene Morrell MD MD pkl Julius Graham NP GLUE SPREADING MACHINE OPERATOR pm1 David Abdi RN RN mg2 Corrections: (The following items were deleted from the chart) 01:08 00:34 02/25/2020 00:34 Discharged to Home. Impression: Calculus of kidney with calculus mg2 of ureter - Left. Condition is Stable. Forms are Medication Reconciliation Form, Thank You Letter, Antibiotic Education, Prescription Opioid Use. Follow up: Emergency Department; When: As needed; Reason: Worsening of condition. Follow up: Private Physician; When: 2 - 3 days; Reason: Recheck today's complaints, Continuance of care, Re-evaluation by your physician. Problem is new. Symptoms have improved. pm1
[2020-02-25 00:36] LABS: Urine Blood NEGATIVE (NEG); Urine Glucose 2+ (NEG); Urine Protein NEGATIVE (NEG); Urine Specific Gravity 1.025 (1.005-1.030); Urine pH 5.5 (5.0-7.0)
[2020-02-25] MEDS ORDERED: KETOROLAC 30 MG/ML INJ ONE (00:50)
[2020-02-25] MEDS ORDERED: TAMSULOSIN 0.4 MG SR CAP ONE (00:50)
[2020-02-25 01:52] VITALS: O2SAT 100
[2020-02-25 01:53] VITALS: BP 142/85; TEMP 98
--- NOTE | 2020-02-25 10:29 | RAD REPORT ---
EXAM DESCRIPTION: CT ABDOMEN AND PELVIS WITHOUT CONTRAST CLINICAL HISTORY: Left flank pain. COMPARISON: CT abdomen and pelvis without contrast 09/07/2019. TECHNIQUE: Axial unenhanced CT imaging of the abdomen and pelvis performed. Reformatted coronal and sagittal images reviewed. A dose reduction technique was utilized with automated exposure control according to patient size. FINDINGS: Clear lung bases. Heart is normal in size. Liver is enlarged to approximately 24 cm. There is mild decreased attenuation due to fatty infiltrati on. No liver mass or biliary dilatation. There is fatty sparing adjacent to the bladder fossa. Unrema rkable gallbladder. No gallstone or biliary dilatation. Normal spleen size and contour. Spleen contai ns a calcified granuloma. Unremarkable pancreas. Normal adrenal glands. Right kidney is normal in con tour and attenuation. There is a 2 mm right renal pelvic nonobstructing stone. There is mild dilatati on of the left renal pelvis. AP pelvis is 1 cm. There are several nonobstructing left renal pelvic st ones up to 3 mm. Mild asymmetric dilatation of the left ureter diffusely. There is a 3 mm left ureter ovesical junction calculus. Normal aorta and inferior vena cava caliber. No retroperitoneal adenopathy. Unremarkable stomach. The small bowel loops appear normal. Appendix is not visualized. Unremarkable c olon. There is no ascites. No free air. No mesenteric adenopathy. Unremarkable bladder. The prostate contains dystrophic calcifications. No pelvic free fluid. Intact b [place] structures. There is mild lower thoracic and lumbar spondylosis. Unremarkable soft tissues. Nonen larged bilateral groin lymph nodes. IMPRESSION: 1. 3 mm left ureterovesical junction stone with mild left hydronephrosis. Several nonobs tructing stones seen within the left renal pelvis up to 3 mm. 2. 2 mm solitary right renal pelvic nonobstructing stone. 3. Hepatomegaly with mild steatosis. 4. Old granulomatous disease. Electronically signed by: Veronika Crowder DO 02/25/2020 12:40 AM CDT Due to temporary technical issues with the PACS/Fluency reporting system, reports are being signed by the in house radiologist without review as a courtesy to ensure prompt reporting. The interpreting r adiologist is fully responsible for the content of the report.
== END 2020-02-25 01:08 | disposition home or self-care (01) ==
LOC: ER 22:58
DX: N20.2 Calculus of kidney with calculus of ureter (principal); E11.9 Type 2 diabetes mellitus without complications; Z87.442 Personal history of urinary calculi; Z88.6 Allergy status to analgesic agent
CPT/HCPCS: 85025; 80048; 36415; 80076; 83690; 76377; 74176; J7030; J2405 ×2; 81003; 81015